=== PATIENT | male | born 1935 | race Caucasian/White ===

== ENCOUNTER 2017-05-11 09:26 | Emergency (ER) | payer MEDICARE ==
[2016-06-10 08:27] VITALS: BMI 24.6
[~2017-05-11 09:26] MED LIST: AMBIEN10 MG PO; AMBIEN5 MG PO; APRISO0.375 GM PO; ASPIRIN 81 MG E81 MG PO; ATIVAN0.5 MG; AZULFIDINE500 MG PO; BENADRYL25 MG PO; BREO ELLIPTA 11 EACH INH; CELEXA20 MG PO; CENTRUM SILVER1 TA2 PO; CILOSTAZOL50 MG PO; CO Q-10100 MG PO; COLACE100 MG PO; COREG 3.1253.125 MG PO; COUMADIN5 MG PO; COZAAR25 MG PO; CRESTOR10 MG PO; CYCLOBENZAPRINE10 MG PO; DEXILANT60 MG PO; DULCOLAX10 MG/SUPP RC; EXELON 13.3 M13.3 MG TRANSDERM; EXELON1 PATCH .1; EXELON1 PATCH .1 TRANSDERM; FLORINEF 0.1 M0.1 MG PO; IMDUR60 MG PO; ISOSORBIDE MONO60 M1 PO; LASIX20 MG PO; MICRO-K PO; MICRO-K10 MEQ PO; MIRALAX17 GM PO; MS CONTIN15 MG PO; NAMENDA XR28 MG PO; NAMENDA10 MG PO; NARCAN INJ0.4 MG/ML IV; NITRO-DUR0.4 MG TD; NITROSTAT0.4 MG SL; NORCO 10/325 TA1 TA1 PO; NORCO 5/325 TAB1 TA1 PO; ONDANSETRON4 MG/2 M3 IV; PAXIL20 MG PO; PLAVIX75 MG PO; PLETAL50 MG PO; POTASSIUM99 M1 PO; PROTONIX40 MG PO; RANEXA1000 MG PO; RANEXA500 MG PO; SENOKOT-S TABLE1 TAB PO; SEROQUEL25 MG PO; THERAGRAN-M ADV1 TA1; TOPROL XL25 MG PO; TYLENOL 8 HOUR650 MG PO; ULTRAM50 MG PO; VITAMIN D2000 UNIT; VITAMIN D31000 UNI2 PO; VITAMIN D50000 UNIT; VOLTAREN75 MG; VOLTAREN75 MG PO; ZANAFLEX2 M1 PO; ZANAFLEX6 MG PO; ZOFRAN ODT4 MG/UDTAB PO
[2017-05-11 10:04] LABS: BASOPHILS 0.6 % (0-2); EOSINOPHILS 3.1 % (0-7); HEMATOCRIT 36.5 % (42.0-54.0); HEMOGLOBIN 11.8 g/dL (13.5-17.5); IMMATURE GRANULOCYTES 0.2 % (0-5); LYMPHOCYTES 15.8 % (15-50); MCH 33.1 pg (26.0-34.0); MCHC 32.3 g/dL (31.0-37.0); MCV 102.2 fL (80.0-100.0); MEAN PLATELET VOLUME 9.6 fL (7.4-10.4); MONOCYTES 10.4 % (2-11); NEUTROPHILS 69.9 % (40-80); RBC 3.57 10x6/uL (4.20-6.10); RDW 15.2 % (11.5-14.5); WBC 4.8 10x3/uL (4.8-10.8)
[2017-05-11 10:11] LABS: PLATELET COUNT 182 10x3/uL (130-400)
[2017-05-11 10:16] LABS: ALBUMIN 3.6 g/dL (3.4-5.0); ALKALINE PHOSPHATASE 109 U/L (46-116); ALT (SGPT) 25 U/L (10-68); BILIRUBIN - TOTAL 0.52 mg/dL (0.2-1.3); CALC OSMOLALITY 280 mosm/kg (275-300); CALCIUM 8.4 mg/dL (8.5-10.1); CARBON DIOXIDE 28.9 mmol/L (21.0-32.0); CHLORIDE - SERUM 104 mmol/L (98-107); GLUCOSE 115 mg/dL (74-106); POTASSIUM - SERUM 3.7 mmol/L (3.5-5.1); PROTEIN - SERUM 6.7 g/dL (6.4-8.2); SODIUM 139 mmol/L (136-145); UREA NITROGEN 17 mg/dL (7-18); eGFR NON AFRICAN AMERICAN 76 mL/min (90-120)
== END 2017-05-11 10:54 | disposition home or self-care (01) ==
LOC: D.ER 09:26
PROVIDERS: Emergency Medicine
DX: R04.2 Hemoptysis (principal); I10 Essential (primary) hypertension; J44.9 Chronic obstructive pulmonary disease, unspecified

== ENCOUNTER 2017-07-03 16:19 | Emergency (ER) | payer MEDICARE ==
[2016-06-10 08:27] VITALS: BMI 24.6
== END 2017-07-03 19:39 | disposition home or self-care (01) ==
LOC: D.ER 16:19
DX: S30.810A Abrasion of lower back and pelvis, initial encounter (principal); W19.XXXA Unspecified fall, initial encounter; Y93.89 Activity, other specified; Y92.019 Unspecified place in single-family (private) house as the place of occurrence of the external cause; Z86.73 Personal history of transient ischemic attack (TIA), and cerebral infarction without residual deficits

== ENCOUNTER → 2017-10-13 13:28 | Outpatient (CLI) | payer MEDICARE ==
[2016-06-10 08:27] VITALS: BMI 24.6
[2017-10-13 14:45] LABS: CREATININE - SERUM 0.9 mg/dL (0.6-1.3)
== END | disposition home or self-care (01) ==
LOC: D.RT 13:28
PROVIDERS: Internal Medicine Pulmonary Disease
DX: R04.2 Hemoptysis (principal)

== ENCOUNTER 2018-03-15 11:19 | Emergency (ER) | payer MEDICARE ==
[2018-03-15 11:35] VITALS: Ht 182.9 cm
[2018-03-15] MEDS ORDERED: K-TAB10 MEQ PO (11:39)
[2018-03-15] MEDS ORDERED: ULTRAM50 MG PO (11:40)
[2018-03-15] MEDS ORDERED: PROTONIX I40 MG/VIAL IV (11:42)
[2018-03-15] MEDS ORDERED: NAMENDA10 MG PO (11:43)
[2018-03-15 12:01] LABS: BASOPHILS 1.2 % (0-2); EOSINOPHILS 20.7 % (0-7); HEMATOCRIT 34.9 % (42.0-54.0); HEMOGLOBIN 11.2 g/dL (13.5-17.5); IMMATURE GRANULOCYTES 0.2 % (0-5); LYMPHOCYTES 15.1 % (15-50); MCH 33.3 pg (26.0-34.0); MCHC 32.1 g/dL (31.0-37.0); MCV 103.9 fL (80.0-100.0); MEAN PLATELET VOLUME 10.8 fL (7.4-10.4); MONOCYTES 9.7 % (2-11); NEUTROPHILS 53.1 % (40-80); PLATELET COUNT 156 10x3/uL (130-400); RBC 3.36 10x6/uL (4.20-6.10); RDW 14.2 % (11.5-14.5); WBC 5.2 10x3/uL (4.8-10.8)
[2018-03-15 12:19] LABS: APPEARANCE CLEAR (CLEAR); BILIRUBIN NEGATIVE (NEGATIVE); COLOR AMBER (YELLOW); GLUCOSE NEGATIVE (NEGATIVE); KETONE NEGATIVE (NEGATIVE); NITRITE NEGATIVE (NEGATIVE); PH 5.5 (5.0-6.0); PROTEIN NEGATIVE (NEGATIVE); UROBILINOGEN NORMAL (NORMAL)
[2018-03-15 12:42] LABS: ALBUMIN 3.4 g/dL (3.4-5.0); ALKALINE PHOSPHATASE 85 U/L (46-116); ALT (SGPT) 11 U/L (10-68); BILIRUBIN - TOTAL 0.44 mg/dL (0.2-1.3); CALC OSMOLALITY 279 mosm/kg (275-300); CALCIUM 8.3 mg/dL (8.5-10.1); CARBON DIOXIDE 30.3 mmol/L (21.0-32.0); CHLORIDE - SERUM 105 mmol/L (98-107); CREATININE - SERUM 0.9 mg/dL (0.6-1.3); GLUCOSE 102 mg/dL (74-106); POTASSIUM - SERUM 4.2 mmol/L (3.5-5.1); PROTEIN - SERUM 5.7 g/dL (6.4-8.2); SODIUM 141 mmol/L (136-145); UREA NITROGEN 9 mg/dL (7-18); eGFR NON AFRICAN AMERICAN 86 mL/min (90-120)
[2018-03-15 12:51] LABS: AMYLASE - SERUM 25 U/L (25-115); CKMB 0.5 U/L (0.0-3.6); CREATINE KINASE 46 UL (21-232); LIPASE 52 U/L (73-393); TROPONIN-I < 0.017 ng/mL (0.000-0.060)
[2018-03-15 17:39] VITALS: BP 136/76
== END 2018-03-15 17:40 | disposition home or self-care (01) ==
LOC: D.ER 11:19
PROVIDERS: Family Medicine
DX: R53.1 Weakness (principal); F03.90 Unspecified dementia, unspecified severity, without behavioral disturbance, psychotic disturbance, mood disturbance, and anxiety; Z91.81 History of falling; I10 Essential (primary) hypertension; I50.9 Heart failure, unspecified; Z95.0 Presence of cardiac pacemaker; I25.10 Atherosclerotic heart disease of native coronary artery without angina pectoris; J44.9 Chronic obstructive pulmonary disease, unspecified

== ENCOUNTER → 2018-04-03 10:24 | Outpatient (CLI) | payer MEDICARE ==
[~2018-04-03 10:24] MED LIST changes: +K-TAB10 MEQ PO; +PROTONIX I40 MG/VIAL IV
== END | disposition home or self-care (01) ==
LOC: D.CT 10:24
DX: I65.23 Occlusion and stenosis of bilateral carotid arteries (principal)

== ENCOUNTER → 2018-07-10 12:13 | Outpatient (CLI) | payer MEDICARE | END | disposition home or self-care (01) | LOC: D.RAD 12:13 | DX: T17.928A Food in respiratory tract, part unspecified causing other injury, initial encounter (principal); X58.XXXA Exposure to other specified factors, initial encounter; J44.9 Chronic obstructive pulmonary disease, unspecified ==

== ENCOUNTER → 2018-08-10 08:46 | Outpatient (CLI) | payer MEDICARE | END | disposition home or self-care (01) | LOC: D.CT 08:30 | DX: R51 Headache (principal) ==

== ENCOUNTER → 2018-10-26 12:58 | Outpatient (CLI) | payer MEDICARE ==
--- NOTE | 2018-10-30 15:03 | EC ---
PATIENT:CAMACHO SOTO DATE OF SERVICE: 10/26/18 SEX: M MEDICAL RECORD: [id number] DATE OF : 37 LOCATION:[facility] AGE OF PATIENT: 83 ADMISSION DATE: 10/26/18 REFERRING PHYSICIAN: INTERPRETING PHYSICIAN: MOHINI SERVIN MD ECHOCARDIOGRAM REPORT ECHO CHARGES 4 ECHO COMPLETE Date: 10/26/18 CLINICAL DIAGNOSIS: MR/SOB H/O CAD/PACEMAKER PLACEMENT ECHOCARDIOGRAPHIC MEASUREMENTS (adult normal given) AC root (d.<3.7cm) 3.6 cm LV Septum d (<1.2 cm> 1.2 cm Valve Excursion 1.9 cm LV Septum (systole) 2.4 cm Left Atria (s.<4.0cm> 5.0 cm LVPW d(<1.2cm) 1.5 cm RV (d.<2.3cm) 2.8 cm LVPW (sytole) 2.6 cm LV diastole(<5.6CM) 5.3 cm MV E-F(>70mm/sec) cm LV systole 2.0 cm LVOT Diameter 2.4 cm MV exc.(>10mm) cm Est.ejection fraction (50-75%) % DOPPLER: LVIT cm/sec A 113 cm/sec E 49.0 cm/sec LA cm/sec RVSP 36.0 mmHg LVOT 69.0 cm/sec AOP1/2T m/s Asc. Ao 161 cm/sec RVOT 73.0 cm/sec RA cm/sec PA 86.0 cm/sec AV Gradient Peak 10.4 mmHg AV Mean 5.4 mmHg AV Area 1.9 cm MV Gradient Peak 7.0 mmHg MV Mean 1.9 mmHg MV Area cm COMMENTS: OP - HC Welt Butter Hand: Aida SPENCE CANDLER Carbide Die Maker: 1 Dr. Servin TAPE# PACS Pericardial Effusion Y DATE OF SERVICE: 10/26/2018 FINDINGS: 1. Left ventricular chamber size is within normal limits. Left ventricular systolic function is preserved. Overall ejection fraction estimated at 50%. 2. Left atrium, right atrium, and right ventricular chamber sizes are mildly dilated. Left atrium measures 5.0 cm. 3. Valvular structures have normal structure and motion. 4. Doppler interrogation reveals [id number] aortic insufficiency, mild mitral regurgitation, trace tricuspid regurgitation, no other valvular ECHOCARDIOGRAM REPORT [id number] CAMACHO SOTO insufficiency or stenosis. Pulmonary systolic pressure is normal, estimated 36 mmHg. 5. No evidence of pericardial effusion or left ventricular thrombus. TRANSINT:[id number] Voice Confirmation ID: [id number] DOCUMENT ID: [id number] MOHINI SERVIN MD at 1503 CC: [id number] DICTATION DATE: 10/26/18 1621 NEEDLE GRADER: 10/26/18 1948 [facility] CLI 10/26/18 [id number] [place] [address]
== END | disposition home or self-care (01) ==
LOC: D.HCCARDIO 12:58
PROVIDERS: ATTEND Internal Medicine Interventional Cardiology
DX: I34.0 Nonrheumatic mitral (valve) insufficiency (principal)